=== PATIENT | male | born 1935 | race Caucasian/White ===

== ENCOUNTER 2018-05-22 21:37 | Inpatient (IN) | payer MEDICARE ==
[2018-05-22] MEDS ORDERED: NORMAL SALINE 1000 ML 1,000 ML IV ONE (22:12)
[2018-05-22] MEDS ORDERED: PIPERACILLIN/TAZOBACTAM 4.5 GM VIAL IV ONE (22:13)
[2018-05-22] MEDS ORDERED: VANCOMYCIN HCL INJ 1000 MG VIAL IV ONE (22:13)
[2018-05-22 22:32] LABS: HEMATOCRIT 33.7 % (37.9-51.0); HEMOGLOBIN 11.1 g/dL (13.5-17.0); MEAN CORPUSCULAR HEMOGLOBIN 28.5 pg (27.0-33.4); MEAN CORPUSCULAR VOLUME 87 fl (80-97); PLATELET COUNT 156 10^3/uL (150-450); RED CELL DISTRIBUTION WIDTH 17.2 % (11.5-14.0); WHITE BLOOD COUNT 13.2 10^3/uL (4.0-10.5)
[2018-05-22 22:49] LABS: ALANINE AMINOTRANSFERASE 21 U/L (21-72); ALKALINE PHOSPHATASE 137 U/L (38-126); ANION GAP 11 (5-19); ASPARTATE AMINO TRANSFERASE 57 U/L (17-59); BILIRUBIN,DIRECT 0.4 mg/dL (0.0-0.4); BILIRUBIN,TOTAL 0.9 mg/dL (0.2-1.3); BLOOD UREA NITROGEN 41 mg/dL (7-20); CALCIUM 8.3 mg/dL (8.4-10.2); CARBON DIOXIDE 25 mmol/L (22-30); CHLORIDE 104 mmol/L (98-107); GLUCOSE 113 mg/dL (75-110); POTASSIUM 3.8 mmol/L (3.6-5.0); SODIUM 139.9 mmol/L (137-145); TOTAL PROTEIN 5.8 g/dL (6.3-8.2)
[2018-05-22 22:56] LABS: VENOUS BLOOD BASE EXCESS 1.5 mmol/L; VENOUS BLOOD HCO3 26.4 mmol/L (20-32); VENOUS BLOOD PH 7.41 (7.30-7.42)
[2018-05-22 23:01] LABS: ABSOLUTE LYMPHOCYTES# (MANUAL) 0.4 10^3/uL (0.5-4.7); ABSOLUTE MONOCYTES # (MANUAL) 0.4 10^3/uL (0.1-1.4); ABSOLUTE NEUTROPHILS# (MANUAL) 12.4 10^3/uL (1.7-8.2); BASOPHILS % (MANUAL) 0 % (0-2); EOSINOPHILS % (MANUAL) 0 % (0-6); LYMPHOCYTES % (MANUAL) 3 % (13-45); MONOCYTES % (MANUAL) 3 % (3-13); PLATELET COMMENT ADEQUATE; SEGMENTED NEUTROPHILS % (MAN) 94 % (42-78); TOTAL CELLS COUNTED 100; TOXIC GRANULATION SLIGHT; TOXIC VACUOLATION PRESENT
--- NOTE | 2018-05-22 23:06 | RADIOLOGY REPORT (SQ) ---
EXAM DESCRIPTION: XR CHEST 1 VIEW COMPLETED DATE/TME: 05/22/2018 22:11 CLINICAL HISTORY: 82 years, Male, fever Findings: The heart is moderately enlarged. Aortic arch is mildly calcified. No consolidations or pleural effusions. No pulmonary edema or pneumothorax. IMPRESSION: No acute disease.
[2018-05-22 23:10] LABS: APPEARANCE,URINE CLOUDY; BILIRUBIN,URINE NEGATIVE (NEGATIVE); COLOR,URINE AMBER; GLUCOSE, URINE NEGATIVE (NEGATIVE); KETONES,URINE NEGATIVE (NEGATIVE); LEUKOCYTE ESTERASE,URINE LARGE (NEGATIVE); NITRITE,URINE NEGATIVE (NEGATIVE); PROTEIN,URINE 30 mg/dL (NEGATIVE); URINE SPECIFIC GRAVITY 1.012; UROBILINOGEN,URINE NEGATIVE mg/dL (<2.0)
--- NOTE | 2018-05-22 23:33 | ER Document Report ---
ED General - General Chief Complaint: Altered Mental Status Stated Complaint: ALTERED MENTAL STATUS Time Seen by Provider: 05/22/18 21:56 Notes: Patient is a 82-year-old male who presents with complaints of altered mental status and fever. Patient had surgery about a week ago at [facility]. All history is from the nurse who spoke with the paramedics. Paramedics got history from family. Family is not at bedside at this time. Had surgery on his right elbow. He been doing well. At baseline he is awake and talking and interactive. He usually sits in a wheelchair. Tonight he started having altered mental status and therefore is sent to the ER. Unsure if he is having vomiting. Unsure if he had any diarrhea. He is not able answer questions at this time. TRAVEL OUTSIDE OF THE [place] IN LAST 30 DAYS: No - Related Data Allergies/Adverse Reactions: No Known Allergies Allergy (Unverified 05/22/18 23:28) Past Medical History - Social History Smoking Status: Former Smoker Chew tobacco use (# tins/day): No Frequency of alcohol use: None Drug Abuse: None Family History: Reviewed & Not Pertinent Patient has suicidal ideation: No Patient has homicidal ideation: No - Past Medical History Cardiac Medical History: Reports: Hx Hypertension Endocrine Medical History: Reports: Hx Diabetes Mellitus Type 2 Renal/ Medical History: Denies: Hx Peritoneal Dialysis Past Surgical History: Reports: Hx Orthopedic Surgery Review of Systems - Review of Systems -: Yes ROS unobtainable due to patient's medical condition - Patient is very confused and unable to answer questions. Physical Exam - Vital signs Vitals: Resp Pulse Ox 27 H 93 05/22/18 22:00 05/22/18 22:00 - Notes Notes: General Appearance: Weak appearing. Patient is awake and alert but does not answer questions. Patient occasionally moans with pain. Vitals: reviewed, See vital signs table. Head: no swelling or tenderness to the head Eyes: PERRL, EOMI, Conjuctiva clear Mouth: Dry mucous membranes Throat: No tonsillar inflammation, No airway obstruction, No lymphadenopathy Neck: Supple, no neck tendernes Lungs: No wheezing, No rales, No rhonci, No accessory muscle use, good air exchange bilaterally. Heart: Tachycardic rate, Regular rythm, No murmur, no rub Abdomen: Normal BS, soft, No rigidity, No abdominal tenderness, No guarding, no rebound, no abdominal masses, no organomegaly Extremities: strength 5/5 in all extremities, good pulses in all extremities, surgical incision site on posterior right elbow is clean without any redness or swelling or purulent drainage. Skin: warm, dry, appropriate color, no rash Neuro: Awake and alert but very confused and does not answer questions. Patient moves extremities on his own. Pupils equal and reactive to light. Course - Re-evaluation Re-evalutation: 05/22/18 23:32 Patient's heart rate has improved. He does have a urinary tract infection on urine cath specimen. Patient case discussed with Dr. Dean. He request that we obtain a CT scan just to make sure patient does not have a kidney stone being that he got very sick from UTI and he is unable to really tell us if he has pain and not due to his altered mental status. CT scan has been ordered. 05/23/18 02:44 CT scan did not show evidence of hydronephrosis or obstruction. Patient's blood pressure did recently drop into the 80s but is come back into the 90s. We will give another fluid bolus as his blood pressure otherwise been remaining stable. I did speak with the hospitalist Dr. Dean who agrees to evaluate the patient for admission. Dictation of this chart was performed using voice recognition software; therefore, there may be some unintended grammatical errors. - Vital Signs Vital signs: Temp Pulse Resp BP Pulse Ox 24 H 100/63 90 L 05/22/18 23:01 05/22/18 23:01 05/22/18 23:01 - Laboratory Result Diagrams: 05/22/18 22:14 05/22/18 22:14 Laboratory results interpreted by me: 05/22/18 05/22/18 05/22/18 22:14 22:14 22:14 WBC 13.2 H RBC 3.90 L Hgb 11.1 L Hct 33.7 L RDW 17.2 H Seg Neuts % (Manual) 94 H Lymphocytes % (Manual) 3 L Abs Neuts (Manual) 12.4 H Abs Lymphs (Manual) 0.4 L BUN 41 H Creatinine 1.92 H Est GFR ( Amer) 41 L Est GFR (Non-Af Amer) 34 L Glucose 113 H Lactic Acid 4.7 H Calcium 8.3 L Alkaline Phosphatase 137 H Total Protein 5.8 L Albumin 3.0 L Urine Protein Urine Blood Ur Leukocyte Esterase 05/22/18 05/23/18 22:30 02:05 WBC RBC Hgb Hct RDW Seg Neuts % (Manual) Lymphocytes % (Manual) Abs Neuts (Manual) Abs Lymphs (Manual) BUN Creatinine Est GFR ( Amer) Est GFR (Non-Af Amer) Glucose Lactic Acid 2.4 H Calcium Alkaline Phosphatase Total Protein Albumin Urine Protein 30 H Urine Blood SMALL H Ur Leukocyte Esterase LARGE H Critical Care Note - Critical Care Note Total time excluding time spent on procedures (mins): 65 Comments: Critical care time for this patient including time spent in procedures approximately 65 minutes due to frequent re-evaluations, management of sepsis, t reatment of acute infection. Discharge - Discharge Clinical Impression: urosepsis UTI (urinary tract infection) Qualifiers: Urinary tract infection type: site unspecified Hematuria presence: without hematuria Qualified Code(s): N39.0 - Urinary tract infection, site not specified Sepsis Qualifiers: Sepsis type: sepsis due to unspecified organism Qualified Code(s): A41.9 - Sepsis, unspecified organism Condition: Stable Disposition: ADMITTED INPATIENT Admitting Provider: Hospitalist Unit Admitted: ICU
--- NOTE | 2018-05-23 02:04 | RADIOLOGY REPORT (SQ) ---
CT ABDOMEN AND PELVIS WITHOUT IV CONTRAST HISTORY: UTI. Evaluate for renal stones. COMPARISON: None. TECHNIQUE: CT scan of the abdomen and pelvis without IV contrast. This exam was performed according to our departmental dose-optimization program, which includes automated exposure control, adjustment of the mA and/or kV according to patient size and/or use of iterative reconstruction technique. FINDINGS: There are small bilateral pleural effusions with compressive atelectasis. No pericardial effusion. Coronary atherosclerotic calcifications are seen. The liver, spleen, pancreas, and adrenal glands are unremarkable. Small punctate gallstones are seen. The left kidney is atrophic. There are 1 to 2 mm punctate bilateral nonobstructing renal stones. Shrestha catheter is seen in the bladder. Coarse prostatic calcifications are seen. There is a moderate amount of stool in the colon. No small bowel obstruction. The appendix is not discerned. The aorta is aneurysmal with prior stenting, measuring up to 4.2 cm at the iliac bifurcation. No free air or free fluid. There are mild degenerative changes of the spine. There are subacute healing fractures of the right superior and inferior pubic rami. IMPRESSION: 1. Punctate nonobstructing bilateral renal stones. Atrophic left kidney. 2. Punctate gallstones. 3. Aneurysmal aorta measuring 4.2 cm status post stenting. 4. Small bilateral pleural effusions with adjacent atelectasis. 5. Subacute healing fractures of the right superior and inferior pubic rami.
[2018-05-23] MEDS ORDERED: NORMAL SALINE 1000 ML 1,000 ML IV ONE (02:37)
[2018-05-23] MEDS ORDERED: ACETAMINOPHEN 650 MG SUPP.RECT PR PRN (03:10)
[2018-05-23] MEDS ORDERED: MAG HYDROX/AL HYDROX/SIMETH SUSP 30 ML UDCUP PO PRN (03:10)
[2018-05-23] MEDS ORDERED: DEXTROSE 5%-WATER 250 ML with NOREPINEPHRINE BITARTRATE 4 MG IV PRN ×2 (03:10)
[2018-05-23] MEDS ORDERED: IPRATROPIUM/ALBUTEROL 0.5-2.5 MG/3 ML AMPUL NEB PRN (03:10)
[2018-05-23] MEDS ORDERED: VANCOMYCIN HCL 0 MG in DEXTROSE 5%-WATER 250 ML IV NR (04:30)
[2018-05-23] MEDS ORDERED: PIPERACILLIN/TAZOBACTAM 3.375 GM VIAL IV PRN (04:39)
[2018-05-23] MEDS: NORMAL SALINE 1000 ML 1,000 ML IV PRN ×2 (04:41→06:44)
[2018-05-23 04:49] LABS: CREATINE KINASE MB 13.6 ng/mL (<4.55)
[2018-05-23 04:56] LABS: TROPONIN I 5.39 ng/mL
[2018-05-23] MEDS ORDERED: ASPIRIN 600 MG SUPP, RECTAL PR ONE (05:01)
[2018-05-23] MEDS ORDERED: ASPIRIN 300 MG SUPP, RECTAL PR ONE (05:25)
[2018-05-23] MEDS ORDERED: ENOXAPARIN SODIUM INJ 60 MG/0.6 ML DISP.SYRIN SUBCUT ONE (05:30)
--- NOTE | 2018-05-23 05:43 | PDOC H&P ---
History of Present Illness Admission Date/PCP: 05/23/18 02:48 Patient complains of: Altered mental status History of Present Illness: LEANNE SAMAYOA is a 82 year old male with an unclear past as he is unable to provide history. It is subsequently obtained by the record and ER provider. Patient presents with altered mental status and fever following surgery to his right elbow approximately 1 week ago at [facility]. Patient had been recovering in rehab until 48 hours ago when he returns home with family. At baseline he is talkative and interactive but developed altered mental status and subsequently brought to the emergency room for evaluation. No additional history is available. Patient is unable to provide history as he is moaning in pain. In the emergency room he is found hypotensive and tachycardic, labs reveal prerenal azotemia with renal failure, urinary tract infection and is diagnosed with sepsis, started on an IV fluid bolus, empiric antibiotics and referred to the hospitalist for admission. Past Medical History Cardiac Medical History: Reports: Hypertension Endocrine Medical History: Reports: Diabetes Mellitus Type 2 Past Surgical History Past Surgical History: Reports: Orthopedic Surgery - Right elbow approximately first week of May 2018 Social History Information Source: [facility] Records Lives with: Family Smoking Status: Former Smoker - Advance Directive Resuscitation Status: Full Code Family History Family History: Other - Unobtainable Parental Family History Reviewed: No - Unobtainable Children Family History Reviewed: No Sibling(s) Family History Reviewed.: No Medication/Allergy Allergies/Adverse Reactions: No Known Allergies Allergy (Unverified 05/22/18 23:28) Review of Systems ROS unobtainable: Due to mental status - Unobtainable secondary to delirium versus dementia, Other - Unobtainable Physical Exam Vital Signs: Temp Pulse Resp BP Pulse Ox 16 108/76 97 05/23/18 05:01 05/23/18 05:01 05/23/18 05:01 Intake & Output 05/21/18 05/22/18 05/23/18 11:59 11:59 11:59 Intake Total 1000 Balance 1000 Weight 59.5 kg General appearance: PRESENT: disheveled, severe distress, thin. ABSENT: cooperative Head exam: PRESENT: atraumatic, normocephalic Eye exam: PRESENT: conjunctiva pink, EOMI, PERRLA. ABSENT: scleral icterus Ear exam: PRESENT: normal external ear exam Mouth exam: PRESENT: dry mucosa, tongue midline Neck exam: ABSENT: carotid bruit, JVD, lymphadenopathy, thyromegaly Respiratory exam: PRESENT: crackles, tachypnea. ABSENT: decreased breath sounds, rales, retraction Cardiovascular exam: PRESENT: +S1, +S2, tachycardia Pulses: PRESENT: normal dorsalis pedis pul Vascular exam: PRESENT: normal capillary refill GI/Abdominal exam: PRESENT: normal bowel sounds, soft. ABSENT: distended, guarding, mass, organolmegaly, rebound, tenderness Rectal exam: PRESENT: deferred Extremities exam: PRESENT: full ROM, other - Right upper extremity wrapped without evidence of bleeding or localized pain. ABSENT: calf tenderness, clubbing, pedal edema Neurological exam: PRESENT: altered, CN II-XII grossly intact. ABSENT: oriented to time, oriented to situation, reflexes normal Psychiatric exam: PRESENT: agitated. ABSENT: homicidal ideation, suicidal ideation Skin exam: PRESENT: dry, intact, warm. ABSENT: cyanosis, rash Results Laboratory Results: 05/22/18 22:14 05/22/18 22:14 05/22/18 05/22/18 05/22/18 22:14 22:14 22:14 WBC 13.2 H RBC 3.90 L Hgb 11.1 L Hct 33.7 L MCV 87 MCH 28.5 MCHC 33.0 RDW 17.2 H Plt Count 156 Seg Neutrophils % Not Reportable Lymphocytes % Not Reportable Monocytes % Not Reportable Eosinophils % Not Reportable Basophils % Not Reportable Absolute Neutrophils Not Reportable Absolute Lymphocytes Not Reportable Absolute Monocytes Not Reportable Absolute Eosinophils Not Reportable Absolute Basophils Not Reportable VBG pH VBG pCO2 VBG HCO3 VBG Base Excess Sodium 139.9 Potassium 3.8 Chloride 104 Carbon Dioxide 25 Anion Gap 11 BUN 41 H Creatinine 1.92 H Est GFR ( Amer) 41 L Est GFR (Non-Af Amer) 34 L Glucose 113 H Lactic Acid 4.7 H Calcium 8.3 L Total Bilirubin 0.9 AST 57 ALT 21 Alkaline Phosphatase 137 H Total Protein 5.8 L Albumin 3.0 L Urine Color Urine Appearance Urine pH Ur Specific [place] Urine Protein Urine Glucose (UA) Urine Ketones Urine Blood Urine Nitrite Ur Leukocyte Esterase Urine WBC (Auto) Urine RBC (Auto) 05/22/18 05/22/18 05/23/18 22:30 22:43 02:05 WBC RBC Hgb Hct MCV MCH MCHC RDW Plt Count Seg Neutrophils % Lymphocytes % Monocytes % Eosinophils % Basophils % Absolute Neutrophils Absolute Lymphocytes Absolute Monocytes Absolute Eosinophils Absolute Basophils VBG pH 7.41 VBG pCO2 43.0 VBG HCO3 26.4 VBG Base Excess 1.5 Sodium Potassium Chloride Carbon Dioxide Anion Gap BUN Creatinine Est GFR ( Amer) Est GFR (Non-Af Amer) Glucose Lactic Acid 2.4 H Calcium Total Bilirubin AST ALT Alkaline Phosphatase Total Protein Albumin Urine Color PHILIP Urine Appearance CLOUDY Urine pH 5.0 Ur Specific [place] 1.012 Urine Protein 30 H Urine Glucose (UA) NEGATIVE Urine Ketones NEGATIVE Urine Blood SMALL H Urine Nitrite NEGATIVE Ur Leukocyte Esterase LARGE H Urine WBC (Auto) >182 Urine RBC (Auto) 10 05/23/18 05/23/18 04:12 04:12 Creatine Kinase 348 H CK-MB (CK-2) 13.60 H Troponin I 5.390 Impressions: Chest X-Ray 05/22/18 22:11 IMPRESSION: No acute disease. Limited or Localized CT 05/23/18 00:00 IMPRESSION: 1. Punctate nonobstructing bilateral renal stones. Atrophic left kidney. 2. Punctate gallstones. 3. Aneurysmal aorta measuring 4.2 cm status post stenting. 4. Small bilateral pleural effusions with adjacent atelectasis. 5. Subacute healing fractures of the right superior and inferior pubic rami. Assessment & Plan - Diagnosis (1) ST elevation [place] (STEMI) Is this a current diagnosis for this admission?: Yes Plan: Likely secondary to severe sepsis. Not interventional candidate given on stability of severe sepsis. Conservative management with aspirin, Plavix and Lovenox. Cardiology consulted. Attempts to contact family are directed to voicemail. (2) Encephalopathy acute Is this a current diagnosis for this admission?: Yes Plan: Likely secondary to severe sepsis. Supportive care (3) Sepsis Qualifiers: Sepsis type: sepsis due to unspecified organism Qualified Code(s): A41.9 - Sepsis, unspecified organism Is this a current diagnosis for this admission?: Yes Plan: Likely secondary to urinary tract infection. Vancomycin and Rocephin initiated. Follow-up urine and blood culture (4) UTI (urinary tract infection) Qualifiers: Urinary tract infection type: site unspecified Hematuria presence: without hematuria Qualified Code(s): N39.0 - Urinary tract infection, site not specified Is this a current diagnosis for this admission?: Yes Plan: Vancomycin and Zosyn initiated. Follow-up blood, urine cultures and CBC - Time Time Spent: 50 to 70 Minutes - Inpatient Certification Medical Necessity: Need Close Monitoring Due to Risk of Patient Decompensation
[2018-05-23] MEDS: CLOPIDOGREL BISULFATE 75 MG TABLET PO ONE ×2 (05:50→06:15)
[2018-05-23] MEDS ORDERED: PIPERACILLIN SODIUM/TAZOBACTAM 3.375 GM in NORMAL SALINE 100 ML IV SCH (06:00)
[2018-05-23] MEDS ORDERED: HEPARIN SOD (PORCINE) 5,000 UNIT/ML 1 ML SYRINGE SUBCUT SCH (06:00)
--- NOTE | 2018-05-23 09:21 | EKG REPORT ---
SEVERITY:- ABNORMAL ECG - SINUS RHYTHM MULTIPLE VENTRICULAR PREMATURE COMPLEXES LEFT ANTERIOR FASCICULAR BLOCK LOW VOLTAGE IN FRONTAL LEADS ABNORMAL T, CONSIDER ISCHEMIA, DIFFUSE LEADS PROLONGED QT INTERVAL : Confirmed by: Mikayla Flowers 23-May-2018 09:21:13
[2018-05-23] MEDS ORDERED: BENZONATATE 100 MG CAPSULE PO PRN (09:46)
[2018-05-23] MEDS ORDERED: ONDANSETRON 4 MG TAB.RAPDIS PO PRN (09:46)
[2018-05-23] MEDS ORDERED: NORMAL SALINE 1000 ML 1,000 ML IV PRN (09:49)
[2018-05-23] MEDS ORDERED: LORAZEPAM INJ 2 MG/1 ML VIAL IV PRN (09:52)
[2018-05-23] MEDS ORDERED: DOCUSATE SODIUM 100 MG CAPSULE PO SCH ×2 (10:00)
[2018-05-23] MEDS ORDERED: CHOLECALCIFEROL (D3) 1,000 UNIT TABLET PO SCH (10:00)
[2018-05-23] MEDS ORDERED: FINASTERIDE 5 MG TABLET PO SCH (10:00)
[2018-05-23] MEDS ORDERED: (PENDING PHARMACY ID) (Levetiracetam [Keppra] 1,000 MG) PO SCH (10:00)
[2018-05-23] MEDS ORDERED: ENOXAPARIN SODIUM INJ 60 MG/0.6 ML DISP.SYRIN SUBCUT SCH (10:00)
[2018-05-23 10:10] LABS: ABSOLUTE LYMPHOCYTES (AUTO) 1.4 10^3/uL (0.5-4.7); ABSOLUTE MONOCYTES (AUTO) 0.6 10^3/uL (0.1-1.4); ABSOLUTE NEUT (AUTO) 5.8 10^3/uL (1.7-8.2); BASOPHILS % (AUTO) 0.3 % (0-2); EOSINOPHILS % (AUTO) 0.3 % (0-6); HEMATOCRIT 27.8 % (37.9-51.0); HEMOGLOBIN 9.3 g/dL (13.5-17.0); LYMPHOCYTES % (AUTO) 17.4 % (13-45); MEAN CORPUSCULAR HEMOGLOBIN 28.6 pg (27.0-33.4); MEAN CORPUSCULAR HGB CONC 33.3 g/dL (32.0-36.0); MEAN CORPUSCULAR VOLUME 86 fl (80-97); MONOCYTES % (AUTO) 7.6 % (3-13); PLATELET COUNT 105 10^3/uL (150-450); RED BLOOD COUNT 3.24 10^6/uL (4.35-5.55); SEGMENTED NEUTROPHILS % (AUTO) 74.4 % (42-78); TOTAL CELLS COUNTED % (AUTO) 100 %; WHITE BLOOD COUNT 7.8 10^3/uL (4.0-10.5)
--- NOTE | 2018-05-23 10:10 | PDOC PROGRESS REPORT ---
Subjective Progress Note for:: 05/23/18 Subjective:: 05/[id number]-snng-old male admitted for altered mental status and sepsis. His troponin was 5.3 this morning. EKG shows diffuse T wave abnormalities indicating ischemia. Patient is not giving much history. Patient was confused and agitated. I spoke to patient and son Julian on the phone as per him this is a change in mental status usually his dad is alert and awake oriented and he has recently has elbow surgery at [facility] from there he went to rehab he is back home for the last 2 days. I requested for stat cardiac enzymes including troponin stat EKG stat BNP. Also requested for CT head without contrast to rule out stroke. Repeat lactic acid levels were requested and I placed him on IV fluids at 50 cc/h. On examination his vital signs blood pressure is 120/60 heart rate in the and pulse ox is 94% on 2 L. I discussed the case with Dr. Reed flarer here he is going to review the case and let me know future plans like possible transfer to [facility]. Reason For Visit: UTI, SEPSIS AMS ARF Physical Exam Vital Signs: Temp Pulse Resp BP Pulse Ox 16 124/60 92 05/23/18 09:01 05/23/18 09:00 05/23/18 09:01 Intake & Output 05/22/18 05/23/18 05/24/18 06:59 06:59 06:59 Intake Total 3100 1000 Balance 3100 1000 Weight 59.5 kg General appearance: PRESENT: mild distress, other - Patient is agitated confused refusing the lab work refusing to cooperate with the nurse flight controls engineer. Head exam: PRESENT: atraumatic Eye exam: PRESENT: PERRLA Neck exam: ABSENT: carotid bruit, JVD, lymphadenopathy, thyromegaly Respiratory exam: PRESENT: decreased breath sounds Cardiovascular exam: PRESENT: systolic murmur, tachycardia GI/Abdominal exam: PRESENT: normal bowel sounds, soft. ABSENT: distended, guarding, mass, organolmegaly, rebound, tenderness Extremities exam: PRESENT: +1 edema Neurological exam: PRESENT: other - Patient is able to tell me where his he had his date of but when I spoke to him about his son he said he does not have a sound then he said his son name is Kanu actually patient's last name is Ya. Definitely change in mental status as per the family members. Psychiatric exam: PRESENT: agitated, anxious Results Laboratory Results: 05/22/18 05/22/18 05/22/18 22:14 22:14 22:14 WBC 13.2 H RBC 3.90 L Hgb 11.1 L Hct 33.7 L MCV 87 MCH 28.5 MCHC 33.0 RDW 17.2 H Plt Count 156 Seg Neutrophils % Not Reportable Lymphocytes % Not Reportable Monocytes % Not Reportable Eosinophils % Not Reportable Basophils % Not Reportable Absolute Neutrophils Not Reportable Absolute Lymphocytes Not Reportable Absolute Monocytes Not Reportable Absolute Eosinophils Not Reportable Absolute Basophils Not Reportable VBG pH VBG pCO2 VBG HCO3 VBG Base Excess Sodium 139.9 Potassium 3.8 Chloride 104 Carbon Dioxide 25 Anion Gap 11 BUN 41 H Creatinine 1.92 H Est GFR ( Amer) 41 L Est GFR (Non-Af Amer) 34 L Glucose 113 H Lactic Acid 4.7 H Calcium 8.3 L Total Bilirubin 0.9 AST 57 ALT 21 Alkaline Phosphatase 137 H Total Protein 5.8 L Albumin 3.0 L Urine Color Urine Appearance Urine pH Ur Specific [place] Urine Protein Urine Glucose (UA) Urine Ketones Urine Blood Urine Nitrite Ur Leukocyte Esterase Urine WBC (Auto) Urine RBC (Auto) 05/22/18 05/22/18 05/23/18 22:30 22:43 02:05 WBC RBC Hgb Hct MCV MCH MCHC RDW Plt Count Seg Neutrophils % Lymphocytes % Monocytes % Eosinophils % Basophils % Absolute Neutrophils Absolute Lymphocytes Absolute Monocytes Absolute Eosinophils Absolute Basophils VBG pH 7.41 VBG pCO2 43.0 VBG HCO3 26.4 VBG Base Excess 1.5 Sodium Potassium Chloride Carbon Dioxide Anion Gap BUN Creatinine Est GFR ( Amer) Est GFR (Non-Af Amer) Glucose Lactic Acid 2.4 H Calcium Total Bilirubin AST ALT Alkaline Phosphatase Total Protein Albumin Urine Color PHILIP Urine Appearance CLOUDY Urine pH 5.0 Ur Specific [place] 1.012 Urine Protein 30 H Urine Glucose (UA) NEGATIVE Urine Ketones NEGATIVE Urine Blood SMALL H Urine Nitrite NEGATIVE Ur Leukocyte Esterase LARGE H Urine WBC (Auto) >182 Urine RBC (Auto) 05/23/18 05/23/18 04:12 04:12 Creatine Kinase 348 H CK-MB (CK-2) 13.60 H Troponin I 5.390 Impressions: Chest X-Ray 05/22/18 22:11 IMPRESSION: No acute disease. Limited or Localized CT 05/23/18 00:00 IMPRESSION: 1. Punctate nonobstructing bilateral renal stones. Atrophic left kidney. 2. Punctate gallstones. 3. Aneurysmal aorta measuring 4.2 cm status post stenting. 4. Small bilateral pleural effusions with adjacent atelectasis. 5. Subacute healing fractures of the right superior and inferior pubic rami. Assessment & Plan - Diagnosis (1) Encephalopathy acute Is this a current diagnosis for this admission?: Yes Plan: 2018-altered mental status/acute encephalopathy most likely secondary to sepsis. Lactic acid level is 2.4. He was on Zosyn and vancomycin. Started on IV fluids normal saline at 50 cc/h. He already received 2 L of fluids in the ER. And is to recheck the lactic acid levels today. The blood cultures urine cultures are pending. Actually urine culture already showing gram-negative rods. (2) Sepsis Qualifiers: Sepsis type: sepsis due to unspecified organism Qualified Code(s): A41.9 - Sepsis, unspecified organism Is this a current diagnosis for this admission?: Yes Plan: 05/23/2018 patient meets the criteria for sepsis. He is hypotensive, tachycardic change in mental status is also tachypneic and urine cultures are positive for gram-negative rods. As I mentioned above he is on Zosyn and vancomycin, IV fluids. His lactic acid levels were elevated at the time of admission. Discussed the care with the family members about the poor prognosis and talked about her living well as per the family patient does not have any living will. And the family is also requesting everything to be done that means he is a full code . (3) ST elevation [place] (STEMI) Is this a current diagnosis for this admission?: Yes Plan: 05/23/2018-troponin was elevated 5.3 is initial troponin start second troponin was requested along with a CPK and EKG shows PVCs tachycardia and T wave abnormalities in diffuse leads. Cardiology consult was requested with Dr. Reed. His input will be appreciated. (4) UTI (urinary tract infection) Qualifiers: Urinary tract infection type: site unspecified Hematuria presence: without hematuria Qualified Code(s): N39.0 - Urinary tract infection, site not specified Is this a current diagnosis for this admission?: Yes Plan: 05/23/2018-urine culture showing gram-negative rods. Patient presently on Zosyn and vancomycin to adjust the dose of vancomycin as per the pharmacy recommendations and IV going to follow the Vanco trough level as per the pharmacy recommendations.
--- NOTE | 2018-05-23 10:24 | EKG REPORT ---
SEVERITY:- ABNORMAL ECG - SINUS RHYTHM LEFT ANTERIOR FASCICULAR BLOCK LOW VOLTAGE IN FRONTAL LEADS NONSPECIFIC T ABNORMALITIES, ANTERIOR LEADS VS ISCHEMIA : Confirmed by: Mikayla Flowers 23-May-2018 10:23:41
[2018-05-23 10:27] LABS: URINE AMPHETAMINES SCREEN NEGATIVE; URINE BARBITURATES SCREEN NEGATIVE; URINE BENZODIAZEPINES SCREEN NEGATIVE; URINE COCAINE SCREEN NEGATIVE; URINE MARIJUANA (THC) SCREEN NEGATIVE; URINE METHADONE SCREEN NEGATIVE; URINE PHENCYCLIDINE SCREEN NEGATIVE
[2018-05-23] MEDS ORDERED: LORAZEPAM INJ 2 MG/1 ML VIAL ONE (10:27)
[2018-05-23 10:30] LABS: ALANINE AMINOTRANSFERASE 26 U/L (21-72); ALBUMIN 2.2 g/dL (3.5-5.0); ALKALINE PHOSPHATASE 77 U/L (38-126); ANION GAP 6 (5-19); ASPARTATE AMINO TRANSFERASE 43 U/L (17-59); BILIRUBIN,DIRECT 0.3 mg/dL (0.0-0.4); BILIRUBIN,TOTAL 0.5 mg/dL (0.2-1.3); BLOOD UREA NITROGEN 31 mg/dL (7-20); CARBON DIOXIDE 23 mmol/L (22-30); CHLORIDE 114 mmol/L (98-107); CREATINE KINASE 329 U/L (55-170); GLUCOSE 125 mg/dL (75-110); POTASSIUM 3.4 mmol/L (3.6-5.0); SODIUM 142.9 mmol/L (137-145); TOTAL PROTEIN 4.6 g/dL (6.3-8.2)
[2018-05-23 10:40] LABS: CREATINE KINASE MB 12.8 ng/mL (<4.55); TROPONIN I 4.68 ng/mL
[2018-05-23] MEDS ORDERED: LEVETIRACETAM 500 MG TABLET PO SCH (11:00)
--- NOTE | 2018-05-23 11:06 | PDOC TRANSFER SUMMARY ---
General Admission Date/PCP: 05/23/18 02:48 Resuscitation Status: Full Code - Transfer Diagnosis (1) ST elevation LA (STEMI) Is this a current diagnosis for this admission?: Yes Diagnosis Summary: 05/23/2018-patient initial EKG shows diffuse T wave abnormalities in multiple leads associated with troponin of 5.3. Second troponin is pending. Patient has history of aortic aneurysm abdominal aortic aneurysm 4.2 cm, history of subdural hematoma. Patient is admitted with sepsis and altered mental status. Patient is on Lovenox 60 mg subcu every 12 hours. He is not on Lovenox full treatment or heparin drip because of the history of subdural hematoma and aortic aneurysm. I discussed the plan with the grinder outside diameter Dr. Reed he recommended to transfer the patient to [facility] and I spoke to Dr. STARKEY AT [facility] and he accepted the patient immediately appreciate his help. Latest labs CK-MB is 12.8, BNP is 19,500, second troponin is 4.68. Dimension W initial troponin is 5.3. (2) Encephalopathy acute Is this a current diagnosis for this admission?: Yes Diagnosis Summary: 2018-altered mental status/acute encephalopathy most likely secondary to sepsis. Lactic acid level is 2.4. He was on Zosyn and vancomycin. Started on IV fluids normal saline at 50 cc/h. He already received 2 L of fluids in the ER. And is to recheck the lactic acid levels today. The blood cultures urine cultures are pending. Actually urine culture already showing gram-negative rods. 05/23/2018 patient's altered mental status most likely secondary to sepsis, patient has history of subdural hematoma several years ago and he had LA with diffuse T wave abnormalities elevated troponin All these contributing to his altered mental status. CT head was pending. (3) Sepsis Is this a current diagnosis for this admission?: Yes Diagnosis Summary: 05/23/2018 patient meets the criteria for sepsis. He is hypotensive, tachycardic change in mental status is also tachypneic and urine cultures are positive for gram-negative rods. As I mentioned above he is on Zosyn and vancomycin, IV fluids. His lactic acid levels were elevated at the time of admission. Dis cussed the care with the family members about the poor prognosis and talked about her living well as per the family patient does not have any living will. And the family is also requesting everything to be done that means he is a full code . 05/23/2017-patient was admitted with altered mental status hypotension tachycardia tachypnea acute renal failure and altered mental status. He got 2 L of fluid in the ER blood pressure improved to 124/60 with heart rate in the 90s. He is still confused and agitated and anxious. He was on Zosyn and vancomycin. Urine culture showing gram-negative rods. Blood cultures are pending. (4) UTI (urinary tract infection) Is this a current diagnosis for this admission?: Yes Diagnosis Summary: -urine culture showing gram-negative rods. Patient presently on Zosyn and vancomycin to adjust the dose of vancomycin as per the pharmacy recommendations and IV going to follow the Vanco trough level as per the pharmacy recommendations. Urine analysis done and urine culture shows gram-negative rods. Patient is on Zosyn and vancomycin. - Transfer Medications Home Medications: Acetaminophen [Tylenol 325 mg Tablet] 650 mg PO Q4HP PRN 05/23/18 Amitriptyline HCl [Elavil 25 mg Tablet] 25 mg PO BID 05/23/18 Atorvastatin Calcium [Lipitor 20 mg Tablet] 20 mg PO QHS 05/23/18 Benzonatate [Tessalon Perle 100 mg Capsule] 100 mg PO TIDP PRN 05/23/18 Cholecalciferol (Vitamin D3) [Vitamin D3 1000 Unit Tablet] 1,000 unit PO DAILY 05/23/18 Docusate Sodium [Colace 100 mg Capsule] 100 mg PO BID 05/23/18 Finasteride [Proscar 5 mg Tablet] 5 mg PO DAILY 05/23/18 Levetiracetam [Keppra] 1,000 mg PO BID 05/23/18 Omeprazole 20 mg PO Q6AM 05/23/18 Ondansetron [Zofran Odt 4 mg Tablet] 4 mg PO Q8HP PRN 05/23/18 Oxycodone HCl/Acetaminophen [Percocet 5-325 mg Tablet] 1 tab PO Q4HP PRN 05/23/18 Sennosides [Senna] 8.6 mg PO QPM 05/23/18 Tamsulosin HCl [Flomax 0.4 mg Cap.sr] 0.4 mg PO QHS 05/23/18 Transfer Medications: Current Medications Acetaminophen (Tylenol 650 Mg Supp) 650 mg IL Q4HP PRN PRN Reason: FOR PAIN OR TEMP Stop: 06/22/18 03:09 Al Hydrox/Mg Hydrox/Simethicone (Maalox Plus Susp 30 Udcup) 30 ml PO Q6HP PRN PRN Reason: HEARTBURN Stop: 06/22/18 03:09 Albuterol/Ipratropium (Duoneb 3 Ml Ampul) 3 ml NEB [id number] PRN PRN Reason: SHORTNESS OF BREATH Stop: 06/22/18 03:09 Amitriptyline HCl (Elavil 25 Mg Tablet) 25 mg PO BID PETE Stop: 06/22/18 09:59 Atorvastatin Calcium (Lipitor 20 Mg Tablet) 20 mg PO QHS PETE Stop: 06/22/18 21:59 Benzonatate (Tessalon Perles 100 Mg Capsule) 100 mg PO TIDP PRN PRN Reason: COUGH Stop: 06/22/18 09:45 Cholecalciferol (Vitamin D3 1000 Unit Tablet) 1,000 unit PO DAILY PETE Stop: 06/22/18 09:59 Clopidogrel Bisulfate (Plavix 75 Mg Tablet) 75 mg PO DAILY PETE Stop: 06/23/18 09:59 Docusate Sodium (Colace 100 Mg Capsule) 100 mg PO BID PETE Stop: 06/22/18 09:59 Docusate Sodium (Colace 100 Mg Capsule) 100 mg PO BID PETE Stop: 06/22/18 09:59 Enoxaparin Sodium (Lovenox Inj 60 Mg/0.6 Ml Disp.Syrin) 60 mg SUBCUT Q12 PETE Stop: 06/22/18 09:59 Finasteride (Proscar 5 Mg Tablet) 5 mg PO DAILY PETE Stop: 06/22/18 09:59 Piperacillin Sod/Tazobactam (Sod 3.375 gm/ Sodium Chloride) 100 mls @ 200 mls/hr IV Q6 PETE Stop: 05/30/18 05:59 Last Infusion: 05/23/18 06:24 Dose: Infused Documented by: Vancomycin HCl / Dextrose 250 mls @ 0 mls/hr IV .PHARMACY TO DOSE NR Stop: 05/30/18 04:29 Sodium Chloride (Nacl 0.9% 1000 Ml Iv Soln) 1,000 mls @ 50 mls/hr IV CONTINUOUS PRN PRN Reason: THIS MED IS NOT "PRN" Stop: 06/22/18 09:48 Levetiracetam (Keppra 500 Mg Tablet) 1,000 mg PO Q12 PETE Stop: 06/22/18 10:59 Lorazepam (Ativan Inj 2 Mg/1 Ml Vial) 1 mg IV Q4HP PRN PRN Reason: ANXIETY/AGITATION Stop: 05/30/18 09:51 Ondansetron HCl (Zofran Odt 4 Mg Tablet) 4 mg PO Q8HP PRN PRN Reason: NAUSEA Stop: 06/22/18 09:45 Tamsulosin HCl (Flomax 0.4 Mg Cap.Sr) 0.4 mg PO QHS PETE Stop: 06/22/18 21:59 - Allergies Allergies/Adverse Reactions: No Known Allergies Allergy (Unverified 05/22/18 23:28) Physical Exam Vital Signs: Temp Pulse Resp BP Pulse Ox 16 124/60 92 05/23/18 09:01 05/23/18 09:00 05/23/18 09:01 Intake & Output 05/22/18 05/23/18 05/24/18 06:59 06:59 06:59 Intake Total 3100 1000 Output Total 450 Balance 3100 550 Weight 59.5 kg General appearance: PRESENT: mild distress Head exam: PRESENT: atraumatic Eye exam: PRESENT: PERRLA Mouth exam: PRESENT: dry mucosa Neck exam: ABSENT: carotid bruit, JVD, lymphadenopathy, thyromegaly Respiratory exam: PRESENT: decreased breath sounds Cardiovascular exam: PRESENT: systolic murmur, tachycardia Pulses: PRESENT: normal dorsalis pedis pul GI/Abdominal exam: PRESENT: normal bowel sounds, soft. ABSENT: distended, guarding, mass, organolmegaly, rebound, tenderness Neurological exam: PRESENT: alert, awake, oriented to person, oriented to place, oriented to time, oriented to situation, CN II-XII grossly intact. ABSENT: motor sensory deficit Psychiatric exam: PRESENT: appropriate affect, normal mood. ABSENT: homicidal ideation, suicidal ideation Results Laboratory Results: 05/23/18 09:36 05/23/18 09:36 05/22/18 05/22/18 05/22/18 22:14 22:14 22:14 WBC 13.2 H RBC 3.90 L Hgb 11.1 L Hct 33.7 L MCV 87 MCH 28.5 MCHC 33.0 RDW 17.2 H Plt Count 156 Seg Neutrophils % Not Reportable Lymphocytes % Not Reportable Monocytes % Not Reportable Eosinophils % Not Reportable Basophils % Not Reportable Absolute Neutrophils Not Reportable Absolute Lymphocytes Not Reportable Absolute Monocytes Not Reportable Absolute Eosinophils Not Reportable Absolute Basophils Not Reportable VBG pH VBG pCO2 VBG HCO3 VBG Base Excess Sodium 139.9 Potassium 3.8 Chloride 104 Carbon Dioxide 25 Anion Gap 11 BUN 41 H Creatinine 1.92 H Est GFR ( Amer) 41 L Est GFR (Non-Af Amer) 34 L Glucose 113 H Lactic Acid 4.7 H Calcium 8.3 L Magnesium Total Bilirubin 0.9 AST 57 ALT 21 Alkaline Phosphatase 137 H Total Protein 5.8 L Albumin 3.0 L Urine Color Urine Appearance Urine pH Ur Specific [place] Urine Protein Urine Glucose (UA) Urine Ketones Urine Blood Urine Nitrite Ur Leukocyte Esterase Urine WBC (Auto) Urine RBC (Auto) 05/22/18 05/22/18 05/23/18 22:30 22:43 02:05 WBC RBC Hgb Hct MCV MCH MCHC RDW Plt Count Seg Neutrophils % Lymphocytes % Monocytes % Eosinophils % Basophils % Absolute Neutrophils Absolute Lymphocytes Absolute Monocytes Absolute Eosinophils Absolute Basophils VBG pH 7.41 VBG pCO2 43.0 VBG HCO3 26.4 VBG Base Excess 1.5 Sodium Potassium Chloride Carbon Dioxide Anion Gap BUN Creatinine Est GFR ( Amer) Est GFR (Non-Af Amer) Glucose Lactic Acid 2.4 H Calcium Magnesium Total Bilirubin AST ALT Alkaline Phosphatase Total Protein Albumin Urine Color PHILIP Urine Appearance CLOUDY Urine pH 5.0 Ur Specific [place] 1.012 Urine Protein 30 H Urine Glucose (UA) NEGATIVE Urine Ketones NEGATIVE Urine Blood SMALL H Urine Nitrite NEGATIVE Ur Leukocyte Esterase LARGE H Urine WBC (Auto) >182 Urine RBC (Auto) 10 05/23/18 05/23/18 05/23/18 09:36 09:36 09:36 WBC 7.8 RBC 3.24 L Hgb 9.3 L Hct 27.8 L MCV 86 MCH 28.6 MCHC 33.3 RDW 18.0 H Plt Count 105 L Seg Neutrophils % 74.4 Lymphocytes % 17.4 Monocytes % 7.6 Eosinophils % 0.3 Basophils % 0.3 Absolute Neutrophils 5.8 Absolute Lymphocytes 1.4 Absolute Monocytes 0.6 Absolute Eosinophils 0.0 Absolute Basophils 0.0 VBG pH VBG pCO2 VBG HCO3 VBG Base Excess Sodium 142.9 Potassium 3.4 L Chloride 114 H Carbon Dioxide 23 Anion Gap 6 BUN 31 H Creatinine 1.28 H Est GFR ( Amer) > 60 Est GFR (Non-Af Amer) 54 L Glucose 125 H Lactic Acid 1.1 Calcium 7.0 L* Magnesium 1.5 L Total Bilirubin 0.5 AST 43 ALT 26 Alkaline Phosphatase 77 Total Protein 4.6 L Albumin 2.2 L Urine Color Urine Appearance Urine pH Ur Specific [place] Urine Protein Urine Glucose (UA) Urine Ketones Urine Blood Urine Nitrite Ur Leukocyte Esterase Urine WBC (Auto) Urine RBC (Auto) 05/23/18 05/23/18 05/23/18 04:12 04:12 09:36 Creatine Kinase 348 H CK-MB (CK-2) 13.60 H 12.80 H Troponin I 5.390 4.680 NT-Pro-B Natriuret Pep 21152 H 05/23/18 09:36 Creatine Kinase 329 H CK-MB (CK-2) Troponin I NT-Pro-B Natriuret Pep Impressions: Chest X-Ray 05/22/18 22:11 IMPRESSION: No acute disease. Limited or Localized CT 05/23/18 00:00 IMPRESSION: 1. Punctate nonobstructing bilateral renal stones. Atrophic left kidney. 2. Punctate gallstones. 3. Aneurysmal aorta measuring 4.2 cm status post stenting. 4. Small bilateral pleural effusions with adjacent atelectasis. 5. Subacute healing fractures of the right superior and inferior pubic rami. Plan Discharge Plan: Plan is to transfer the patient to [facility]. Dr. Kaplan at [facility] accepted the patient. Time Spent: Greater than 30 Minutes
--- NOTE | 2018-05-23 11:17 | RADIOLOGY REPORT (SQ) ---
EXAM DESCRIPTION: U/S RETROPERITON (RENAL/AORTA) COMPLETED DATE/TIME: 05/23/2018 11:05 am REASON FOR STUDY: renal failure COMPARISON: None. TECHNIQUE: Dynamic and static grayscale images acquired of the kidneys and bladder and recorded on P ACS. Additional selected color Doppler and spectral images recorded. LIMITATIONS: None. FINDINGS: RIGHT KIDNEY: Normal size. Normal echogenicity. No solid or suspicious masses. No hydronep hrosis. No calcifications. LEFT KIDNEY: Partially obscured by bowel gas. Normal size. Normal echogenicity. No solid or suspici ous masses. No hydronephrosis. No calcifications. BLADDER: Empty. Catheter in place appear no gross abnormality. OTHER FINDINGS: No other significant finding. IMPRESSION: UNREMARKABLE RENAL ULTRASOUND. TECHNICAL DOCUMENTATION: JOB ID: [id number] [employer] All Rights Reserved Reading location - IP/workstation name: [email or web address]
--- NOTE | 2018-05-23 11:20 | RADIOLOGY REPORT (SQ) ---
EXAM DESCRIPTION: CT HEAD WITHOUT COMPLETED DATE/TIME: 05/23/2018 11:11 am REASON FOR STUDY: altered mental status COMPARISON: None. TECHNIQUE: Axial images acquired through the brain without intravenous contrast. Images reviewed wi th bone, brain and subdural windows. Additional sagittal and coronal reconstructions were generated. Images stored on PACS. All CT scanners at this facility use dose modulation, iterative reconstruction, and/or weight based d osing when appropriate to reduce radiation dose to as low as reasonably achievable (ALARA). [facility]: Dose Right [facility]: CareDose [facility]: Dose Right [facility]: Teradose 4D [facility]: Zenbox RADIATION DOSE: CT Rad equipment meets quality standard of care and radiation dose reduction techniq ues were employed. CTDIvol: 53.2 mGy. DLP: 1017 mGy-cm.mGy. LIMITATIONS: None. FINDINGS: VENTRICLES: Prominent. CEREBRUM: No masses. No hemorrhage. No midline shift. Areas of low density in the white matter mos t likely due to chronic micro-vascular ischemic change. No evidence for acute infarction. CEREBELLUM: No masses. No hemorrhage. No alteration of density. No evidence for acute infarction. EXTRAAXIAL SPACES: Fluid collection overlying the left cerebral hemisphere with intermediate density and a few areas of increased density, consistent with subacute subdural hematoma with a few areas of recent bleed. Maximum thickness approximately 1.1 cm. ORBITS AND GLOBE: No intra- or extraconal masses. Normal contour of globe without masses. CALVARIUM: No fracture. PARANASAL SINUSES: No fluid or mucosal thickening. SOFT TISSUES: No mass or hematoma. OTHER: No other significant finding. IMPRESSION: 1. LEFT SIDE SUBACUTE SUBDURAL HEMATOMA. A FEW SMALL AREAS OF INCREASED DENSITY CONSISTENT WITH RECE NT BLEED. NO SIGNIFICANT MASS EFFECT OR MIDLINE SHIFT. 2. CHRONIC CHANGES OF ATROPHY AND MICROVASCULAR ISCHEMIA. EVIDENCE OF ACUTE STROKE: NO. TECHNICAL DOCUMENTATION: JOB ID: [id number] Quality ID # [id number]: Final reports with documentation of one or more dose reduction techniques (e.g., Au tomated exposure control, adjustment of the mA and/or kV according to patient size, use of iterative reconstruction technique) 2010 [employer]- All Rights Reserved Reading location - IP/workstation name: [email or web address]
[2018-05-23 12:03] VITALS: BP 115/68
[2018-05-23] MEDS ORDERED: AMITRIPTYLINE HCL 25 MG TABLET PO SCH (13:00)
[2018-05-23] MEDS ORDERED: VANCOMYCIN HCL 1,250 MG in DEXTROSE 5%-WATER 250 ML IV SCH (22:00)
[2018-05-23] MEDS ORDERED: TAMSULOSIN HCL 0.4 MG CAP.SR.24H PO SCH (22:00)
[2018-05-23] MEDS ORDERED: ATORVASTATIN CALCIUM 20 MG TABLET PO SCH (22:00)
[2018-05-24] MEDS ORDERED: CLOPIDOGREL BISULFATE 75 MG TABLET PO SCH (10:00)
== END 2018-05-23 13:02 | disposition short-term general hospital (02) | DRG 871 ==
LOC: ER 21:37 → EH 05-23 02:48
PROVIDERS: ADMIT Internal Medicine; ATTEND Internal Medicine
DX: A41.9 Sepsis, unspecified organism (principal); I21.3 ST elevation (STEMI) myocardial infarction of unspecified site; G93.41 Metabolic encephalopathy; N39.0 Urinary tract infection, site not specified; R65.20 Severe sepsis without septic shock; I10 Essential (primary) hypertension; B96.20 Unspecified Escherichia coli [E. coli] as the cause of diseases classified elsewhere; Z87.891 Personal history of nicotine dependence
CPT/HCPCS: 36415; 70450; 71045; 76380; 76770; 80053; 80307; 81001; 82550; 82553; 82803; 83605; 83735; 83880; 84484; 85025; 87040; 87086; 87088; 87186; 93005; 93010; 96361; 96365; 99291; J1650; J2060; J2543; J3370; J3490; J7030